=== PATIENT | female | born 1975 | race Two or more races ===

== ENCOUNTER 2019-01-01 08:27 | Emergency (ER) | payer OTHER ==
[~2019-01-01] VITALS: Ht 177.8 cm; Wt 136.0 kg
[2019-01-01] MEDS ORDERED: KETOROLAC 60MG/2ML VIAL IM STA (10:35)
[2019-01-01 11:15] LABS: BASOPHILS % 0.3 % (0.0-2.0); EOSINOPHILS % 0.8 % (0.0-5.0); HEMATOCRIT. 41.6 % (36.0-48.0); HEMOGLOBIN. 13.7 g/dL (12.0-16.0); LYMPHOCYTES % 11.3 % (20.0-50.0); MEAN CORPUSCULAR HEMOGLOBIN 27.2 pg (28.0-32.0); MEAN CORPUSCULAR VOLUME 82.4 fL (81.0-99.0); MEAN PLATELET VOLUME 9.3 fl (7.4-10.4); MONOCYTES % 4.3 % (2.0-8.0); NEUTROPHILS % 83.3 % (40.0-76.0); PLATELET 225 x1000/uL (130-400); RED BLOOD CELL COUNT 5.05 mill/uL (4.2-5.4)
[2019-01-01 11:17] LABS: CHLORIDE 105 mEq/L (98-107)
[2019-01-01 11:18] LABS: PROTHROMBIN TIME 10.3 sec (9.6-11.0)
[2019-01-01 11:43] LABS: CLARITY URINE CLOUDY (CLEAR); COLOR URINE YELLOW (YELLOW); KETONES URINE TRACE (NEGATIVE); LEUKOCYTE ESTERASE URINE TRACE (NEGATIVE); NITRITE URINE NEGATIVE (NEGATIVE); OCCULT BLOOD URINE 3+ (NEGATIVE); PROTEIN URINE 3+ (NEGATIVE); SPECIFIC GRAVITY URINE 1.022 (1.005-1.030); UROBILINOGEN URINE 0.2 E.U./dL (0.2-1.0)
[2019-01-01] MEDS ORDERED: METRONIDAZOLE 500MG TABLET PO ONE (12:15)
[2019-01-01 12:37] VITALS: BP 175/99
== END 2019-01-01 12:38 | disposition home or self-care (01) ==
LOC: ER 08:27
DX: N13.0 Hydronephrosis with ureteropelvic junction obstruction (principal); N20.2 Calculus of kidney with calculus of ureter; N30.90 Cystitis, unspecified without hematuria
CPT/HCPCS: 36415; 74176; 80053; 81003; 81025; 83690; 85025; 85610; 87077; 87086; 96372; 99284; J1885; Z7610

== ENCOUNTER 2019-04-09 12:38 | Emergency (ER) | payer OTHER ==
[~2019-04-09] VITALS: Ht 177.8 cm; Wt 150.0 kg
[2019-04-09 15:01] LABS: BASOPHILS % 0.4 % (0.0-2.0); EOSINOPHILS % 0.7 % (0.0-5.0); LYMPHOCYTES % 14.7 % (20.0-50.0); MEAN CORPUSCULAR HEMOGLOBIN 27.5 pg (28.0-32.0); MEAN CORPUSCULAR VOLUME 82.8 fL (81.0-99.0); MEAN PLATELET VOLUME 8.9 fl (7.4-10.4); MONOCYTES % 4.4 % (2.0-8.0); NEUTROPHILS % 79.8 % (40.0-76.0); PLATELET 211 x1000/uL (130-400); RED BLOOD CELL COUNT 5.07 mill/uL (4.2-5.4)
[2019-04-09 15:07] LABS: CHLORIDE 104 mEq/L (98-107)
[2019-04-09 15:18] LABS: B-HCG QUANTITATIVE < 1 mIU/mL (<3)
[2019-04-09 17:43] VITALS: BP 157/101
== END 2019-04-09 17:57 | disposition home or self-care (01) ==
LOC: ER 12:38
DX: N93.9 Abnormal uterine and vaginal bleeding, unspecified (principal); D25.9 Leiomyoma of uterus, unspecified; I10 Essential (primary) hypertension
CPT/HCPCS: 36415; 76830; 76856; 84702; 86850; 86900; 99284

== ENCOUNTER 2020-11-10 18:16 | Emergency (ER) | payer MEDICAID, OTHER ==
[~2020-11-10] VITALS: Ht 177.8 cm; Wt 136.0 kg
[2020-11-10 19:27] LABS: BASOPHILS % 0.2 % (0.0-2.0); EOSINOPHILS % 1.2 % (0.0-5.0); HEMATOCRIT. 42.5 % (36.0-48.0); HEMOGLOBIN. 14.2 g/dL (12.0-16.0); LYMPHOCYTES % 19.1 % (20.0-50.0); MEAN CORPUSCULAR HEMOGLOBIN 26.9 pg (28.0-32.0); MEAN CORPUSCULAR VOLUME 80.6 fL (81.0-99.0); MONOCYTES % 7.1 % (2.0-8.0); NEUTROPHILS % 72.4 % (40.0-76.0); PLATELET 236 x1000/uL (130-400); RED BLOOD CELL COUNT 5.27 mill/uL (4.2-5.4); RED CELL DISTRIBUTION WIDTH 15.8 % (11.6-14.6)
[2020-11-10 19:33] LABS: CHLORIDE 102 mEq/L (98-107)
[2020-11-10 19:38] LABS: ETHANOL BLOOD < 10 mg/dL; INR 1.1; PROTHROMBIN TIME 11.9 sec (9.6-11.0)
[2020-11-10 19:40] LABS: LDL CHOLESTEROL 153 mg/dL (5-100)
[2020-11-10] MEDS ORDERED: IOHEXOL-350 100 ML BOTTLE ONE (21:07)
[2020-11-10 22:50] VITALS: BP 147/100
== END 2020-11-10 23:03 | disposition short-term general hospital (02) ==
LOC: ER 18:16 → CANBEDREQ 23:11
DX: I66.01 Occlusion and stenosis of right middle cerebral artery (principal); I10 Essential (primary) hypertension; E11.9 Type 2 diabetes mellitus without complications; Z86.73 Personal history of transient ischemic attack (TIA), and cerebral infarction without residual deficits
CPT/HCPCS: 36415; 70450; 70496; 70498; 71045; 80053; 80320; 82962; 83721; 84484; 85025; 85610; 93005; 99291; Q9967; Z7610; G0480

== ENCOUNTER 2021-11-01 09:42 | Emergency (ER) | payer OTHER ==
[~2021-11-01] VITALS: Ht 177.8 cm; Wt 111.0 kg
[2021-11-01] MEDS ORDERED: ONDANSETRON 4MG ODT PO ONE (10:00)
[2021-11-01] MEDS ORDERED: HYDROCODONE/ACETAMINOPHEN 5/325MG TABLET PO ONE (10:00)
[2021-11-01 10:33] LABS: BASOPHILS % 0.5 % (0.0-2.0); EOSINOPHILS % 2.1 % (0.0-5.0); HEMATOCRIT. 38.2 % (36.0-48.0); HEMOGLOBIN. 12.6 g/dL (12.0-16.0); LYMPHOCYTES % 17.1 % (20.0-50.0); MEAN CORPUSCULAR HEMOGLOBIN 28.9 pg (28.0-32.0); MEAN CORPUSCULAR VOLUME 87.7 fL (81.0-99.0); MEAN PLATELET VOLUME 8.5 fl (7.4-10.4); MONOCYTES % 7.1 % (2.0-8.0); NEUTROPHILS % 73.2 % (40.0-76.0); PLATELET 208 x1000/uL (130-400); RED BLOOD CELL COUNT 4.36 mill/uL (4.2-5.4)
[2021-11-01 10:44] LABS: HCG SCREEN NEGATIVE
[2021-11-01] MEDS ORDERED: HYDR-4001 MT (10:59)
[2021-11-01 11:10] VITALS: BP 128/74
== END 2021-11-01 11:12 | disposition home or self-care (01) ==
LOC: ER 09:42
DX: M10.9 Gout, unspecified (principal); M79.671 Pain in right foot; I10 Essential (primary) hypertension; E11.9 Type 2 diabetes mellitus without complications; E78.00 Pure hypercholesterolemia, unspecified; Z86.73 Personal history of transient ischemic attack (TIA), and cerebral infarction without residual deficits; Z98.890 Other specified postprocedural states
CPT/HCPCS: 36415; 73630; 80048; 84550; 84703; 85025; 99284; Q0162

== ENCOUNTER 2022-10-21 03:26 | Emergency (ER) | payer OTHER ==
[~2022-10-21] VITALS: Ht 177.8 cm; Wt 113.0 kg
[~2022-10-21 03:26] MED LIST: HYDR-4001 MT
[2022-10-21 04:00] VITALS: BP 160/97
[2022-10-21] MEDS ORDERED: KETOROLAC 30MG/ML VIAL IM ONE (04:00)
[2022-10-21 04:13] LABS: BASOPHILS % 0.6 % (0.0-2.0); EOSINOPHILS % 2.5 % (0.0-5.0); HEMATOCRIT. 29.8 % (36.0-48.0); HEMOGLOBIN. 9.2 g/dL (12.0-16.0); MEAN CORPUSCULAR HEMOGLOBIN 22.7 pg (28.0-32.0); MEAN CORPUSCULAR VOLUME 73.9 fL (81.0-99.0); MEAN PLATELET VOLUME 8.2 fl (7.4-10.4); MONOCYTES % 7.9 % (2.0-8.0); PLATELET 296 x1000/uL (130-400); RED BLOOD CELL COUNT 4.04 mill/uL (4.2-5.4); RED CELL DISTRIBUTION WIDTH 22.1 % (11.6-14.6)
[2022-10-21 04:52] LABS: PLATELET ESTIMATE NORMAL
[2022-10-21] MEDS ORDERED: HYDR-4001 MT (05:02)
[2022-10-21] MEDS ORDERED: ALLO100T MT (05:02)
[2022-10-21] MEDS ORDERED: COLC0.6C3 MT (05:02)
== END 2022-10-21 05:10 | disposition home or self-care (01) ==
LOC: ER 03:26
DX: M10.9 Gout, unspecified (principal); E11.22 Type 2 diabetes mellitus with diabetic chronic kidney disease; I12.0 Hypertensive chronic kidney disease with stage 5 chronic kidney disease or end stage renal disease; N18.6 End stage renal disease; E78.00 Pure hypercholesterolemia, unspecified; Z79.899 Other long term (current) drug therapy
CPT/HCPCS: 36415; 73630; 80048; 81025; 84550; 85025; 96372; 99284; J1885